=== PATIENT | female | born 1975 | race Caucasian/White ===

== ENCOUNTER 2017-06-13 11:06 | Emergency (ER) | payer BC ==
[2017-06-13] MEDS ORDERED: NS 0.9% 1000 ML* 1,000 ML IV ONE (11:23)
[2017-06-13 11:48] LABS: Hematocrit 37 % (35-47); Hemoglobin 12.2 g/dl (12.0-16.0); Mean Corpuscular HGB Conc 33 g/dl (31-36); Mean Corpuscular Hemoglobin 31 pg (27-31); Mean Corpuscular Volume 93 fL (80-97); Mean Platelet Volume 8 um3 (7.4-10.4); Red Blood Count 3.98 10^6/ul (4.0-5.4); Red Cell Distribution Width 14 % (10.5-15); White Blood Count 8.1 10^3/ul (3.5-10.8)
--- NOTE | 2017-06-13 11:52 | RAD ---
Indication: Palpitations, syncope. CT of the brain was performed without IV contrast. Ventricular structures are midline. No midline shift is noted. The extra-axial spaces are unremarkable. There is no evidence of intracranial mass or hemorrhage. No other high or low density lesions are identified. Mastoid air cells and paranasal sinuses are otherwise unremarkable. IMPRESSION: No intracranial mass or hemorrhage is noted.
[2017-06-13 12:08] LABS: ALT 17 U/L (7-52); AST 21 U/L (13-39); Albumin 4.1 g/dL (3.2-5.2); Alkaline Phosphatase 58 U/L (34-104); Anion Gap 9 mmol/L (2-11); BUN/Creatinine Ratio 18.2 (8-20); Blood Urea Nitrogen 14 mg/dL (6-24); CO2 Carbon Dioxide 22 mmol/L (22-32); Calcium 9.3 mg/dL (8.6-10.3); Chloride 101 mmol/L (101-111); EGFR African American 106.8 (>60); Globulin 3.5 g/dL (2-4); Glucose 86 mg/dL (70-100); Potassium 3.9 mmol/L (3.5-5.0); Sodium 132 mmol/L (133-145); Total Protein 7.6 g/dL (6.4-8.9)
--- NOTE | 2017-06-13 12:15 | RAD ---
Indication: Palpitations. 2 views of the chest including dual energy PA views are reviewed. Comparison is made with previous exam dated November 12, 2010. No pleural fluid is identified. Lung ding appear clear. IMPRESSION: No active cardiopulmonary disease is noted.
[2017-06-13 12:19] LABS: Urine Bilirubin Negative (Negative); Urine Glucose Negative (Negative); Urine Nitrite Negative (Negative)
--- NOTE | 2017-06-13 13:31 | ED ---
Ramiro Martinez Auryana, scribed for Niles Stewart MD on 06/13/17 at 1125 . HPI Cardiac - HPI Summary HPI Summary: 41 year old female presents with diaphoresis, palpitations, and SOB starting last night. Patient reports that her symptoms woke her from sleep and then reports LOC. This morning, patient reported feeling "whoozy" with nausea and chills with intermittent diaphoresis. She denies any CP. She denies any oral control pills - LMP June 05 - the reports normal. Patient reports that she has been fatigued with SOB over the last few months. She also reports recent ABX use (Augmentin) for sinus infection. PMHx is significant for RA- recently ceased taking Xeljanz, and ulcerative colitis. he denies any thyroid problems and reports no previous surgeries. FHx is significant for cancer and CAD. SHx is significant for occasional alcohol but denies any tobacco use. - History of Current Complaint Chief Complaint: EDShortnessOfBreath Stated Complaint: SYNCOPE, SHORT OF BREATH , Time Seen by Provider: 06/13/17 11:18 Hx Obtained From: Patient Onset/Duration: Started Hours Ago - lastnight, Still Present Timing: Constant Initial Severity: Mild Current Severity: Mild Pain Intensity: 0 Pain Scale Used: 0-10 Numeric Associated Signs and Symptoms: Positive: Shortness of Breath, Chills, Diaphoresis, Nausea, Palpitations. Negative: Chest Pain Related History: Similar Episode/Dx as: - see HPI - Allergy/Home Medications Allergies/Adverse Reactions: Allergies Allergy/AdvReac Type Severity Reaction Status Date / Time Sulfa Antibiotics Allergy Intermediate mouth sores Verified 06/13/17 12:24 Adalimumab [From Humira] Allergy FEVER, RASH Verified 06/13/17 12:24 PMH/Surg Hx/FS Hx/Imm Hx GI History: Reports: Other GI Disorders - ULCERATIVE COLITIS Musculoskeletal History: Reports: Hx Rheumatoid Arthritis - Surgical History Surgery Procedure, Year, and Place: NONE - Immunization History Date of Influenza Vaccine: 2015 Infectious Disease History: Denies: Hx Clostridium Difficile, Hx Hepatitis, Hx Human Immunodeficiency Virus (HIV), Hx of Known/Suspected MRSA, Hx Shingles, Hx Tuberculosis, Traveled Outside the [place] in Last 30 Days - Family History Known Family History: Positive: Cardiac Disease, Diabetes, Other - cancer - Social History Alcohol Use: Occasionally Hx Substance Use: No Substance Use Type: Reports: None Hx Tobacco Use: No Smoking Status (MU): Never Smoked Tobacco Review of Systems Positive: Chills, Fatigue - over the last few months , Skin Diaphoresis, Other - reports feeling "whoozy". Negative: Fever Eyes: Negative ENT: Negative Positive: Palpitations. Negative: Chest Pain Positive: Shortness Of Breath - also over the last few months Positive: Nausea Genitourinary: Negative Positive: no symptoms reported Musculoskeletal: Negative Skin: Negative Neurological: Negative Psychological: Normal All Other Systems Reviewed And Are Negative: Yes Physical Exam - Summary Physical Exam Summary: VITAL SIGNS: Reviewed. GENERAL: Patient is a well-developed and nourished female who is lying comfortable in the stretcher. Patient is not in any acute respiratory distress. HEAD AND FACE: No signs of trauma. No ecchymosis, hematomas or skull depressions. No sinus tenderness. EYES: PERRLA, EOMI x 2, No injected conjunctiva, no nystagmus. EARS: Hearing grossly intact. Ear canals and tympanic membranes are within normal limits. MOUTH: Oropharynx within normal limits. NECK: Supple, trachea is midline, no adenopathy, no JVD, no carotid bruit, no c- spine tenderness, neck with full ROM. CHEST: Symmetric, no tenderness at palpation LUNGS: Clear to auscultation bilaterally. No wheezing or crackles. CVS: Regular rate and rhythm, S1 and S2 present, no murmurs or gallops appreciated. ABDOMEN: Soft, non-tender. No signs of distention. No rebound no guarding, and no masses palpated. Bowel sounds are normal. EXTREMITIES: FROM in all major joints, no edema, no cyanosis or clubbing. NEURO: Alert and oriented x 3. No acute neurological deficits. Speech is normal and follows commands. SKIN: Dry and warm. Triage Information Reviewed: Yes Vital Signs On Initial Exam: Initial Vitals Temp Pulse Resp BP Pulse Ox 98.0 F 64 20 141/95 100 06/13/17 11:08 06/13/17 11:08 06/13/17 11:08 06/13/17 11:08 06/13/17 11:08 Vital Signs Reviewed: Yes Diagnostics - Vital Signs Vital Signs Temp Pulse Resp BP Pulse Ox 06/13/17 11:08 98.0 F 64 20 141/95 100 - Laboratory Lab Results: Lab Results 06/13/17 06/13/17 06/13/17 Range/Units 11:32 11:32 11:32 WBC 8.1 (3.5-10.8) 10^3/ul RBC 3.98 L (4.0-5.4) 10^6/ul Hgb 12.2 (12.0-16.0) g/dl Hct 37 (35-47) % MCV 93 (80-97) fL MCH 31 (27-31) pg MCHC 33 (31-36) g/dl RDW 14 (10.5-15) % Plt Count 342 (150-450) 10^3/ul MPV 8 (7.4-10.4) um3 Neut % (Auto) 60.6 (38-83) % Lymph % (Auto) 21.7 L (25-47) % [place] % (Auto) 14.9 H (1-9) % Eos % (Auto) 1.9 (0-6) % Baso % (Auto) 0.9 (0-2) % Absolute Neuts (auto) 4.9 (1.5-7.7) 10^3/ul Absolute Lymphs (auto) 1.7 (1.0-4.8) 10^3/ul Absolute Monos (auto) 1.2 H (0-0.8) 10^3/ul Absolute Eos (auto) 0.2 (0-0.6) 10^3/ul Absolute Basos (auto) 0.1 (0-0.2) 10^3/ul Absolute Nucleated RBC 0.01 10^3/ul Nucleated RBC % 0.1 Sodium 132 L (133-145) mmol/L Potassium 3.9 (3.5-5.0) mmol/L Chloride 101 (101-111) mmol/L Carbon Dioxide 22 (22-32) mmol/L Anion Gap 9 (2-11) mmol/L BUN 14 (6-24) mg/dL Creatinine 0.77 (0.51-0.95) mg/dL Est GFR ( Amer) 106.8 (>60) Est GFR (Non-Af Amer) 83.0 (>60) BUN/Creatinine Ratio 18.2 (8-20) Glucose 86 (70-100) mg/dL Lactic Acid 0.6 (0.5-2.0) mmol/L Calcium 9.3 (8.6-10.3) mg/dL Magnesium 2.0 (1.9-2.7) mg/dL Total Bilirubin 0.30 (0.2-1.0) mg/dL AST 21 (13-39) U/L ALT 17 (7-52) U/L Alkaline Phosphatase 58 (34-104) U/L Troponin I 0.00 (<0.04) ng/mL B-Natriuretic Peptide ( - 100) pg/mL Total Protein 7.6 (6.4-8.9) g/dL Albumin 4.1 (3.2-5.2) g/dL Globulin 3.5 (2-4) g/dL Albumin/Globulin Ratio 1.2 (1-3) TSH 1.50 (0.34-5.60) mcIU/mL Beta HCG, Quant < 0.60 mIU/mL Urine Color Urine Appearance Urine pH (5-9) Ur Specific [place] (1.010-1.030) Urine Protein (Negative) Urine Ketones (Negative) Urine Blood (Negative) Urine Nitrate (Negative) Urine Bilirubin (Negative) Urine Urobilinogen (Negative) Ur Leukocyte Esterase (Negative) Urine Glucose (Negative) 06/13/17 06/13/17 Range/Units 11:32 12:00 WBC (3.5-10.8) 10^3/ul RBC (4.0-5.4) 10^6/ul Hgb (12.0-16.0) g/dl Hct (35-47) % MCV (80-97) fL MCH (27-31) pg MCHC (31-36) g/dl RDW (10.5-15) % Plt Count (150-450) 10^3/ul MPV (7.4-10.4) um3 Neut % (Auto) (38-83) % Lymph % (Auto) (25-47) % [place] % (Auto) (1-9) % Eos % (Auto) (0-6) % Baso % (Auto) (0-2) % Absolute Neuts (auto) (1.5-7.7) 10^3/ul Absolute Lymphs (auto) (1.0-4.8) 10^3/ul Absolute Monos (auto) (0-0.8) 10^3/ul Absolute Eos (auto) (0-0.6) 10^3/ul Absolute Basos (auto) (0-0.2) 10^3/ul Absolute Nucleated RBC 10^3/ul Nucleated RBC % Sodium (133-145) mmol/L Potassium (3.5-5.0) mmol/L Chloride (101-111) mmol/L Carbon Dioxide (22-32) mmol/L Anion Gap (2-11) mmol/L BUN (6-24) mg/dL Creatinine (0.51-0.95) mg/dL Est GFR ( Amer) (>60) Est GFR (Non-Af Amer) (>60) BUN/Creatinine Ratio (8-20) Glucose (70-100) mg/dL Lactic Acid (0.5-2.0) mmol/L Calcium (8.6-10.3) mg/dL Magnesium (1.9-2.7) mg/dL Total Bilirubin (0.2-1.0) mg/dL AST (13-39) U/L ALT (7-52) U/L Alkaline Phosphatase (34-104) U/L Troponin I (<0.04) ng/mL B-Natriuretic Peptide 37 ( - 100) pg/mL Total Protein (6.4-8.9) g/dL Albumin (3.2-5.2) g/dL Globulin (2-4) g/dL Albumin/Globulin Ratio (1-3) TSH (0.34-5.60) mcIU/mL Beta HCG, Quant mIU/mL Urine Color Straw Urine Appearance Clear Urine pH 7.0 (5-9) Ur Specific [place] 1.006 L (1.010-1.030) Urine Protein Negative (Negative) Urine Ketones Negative (Negative) Urine Blood Negative (Negative) Urine Nitrate Negative (Negative) Urine Bilirubin Negative (Negative) Urine Urobilinogen Negative (Negative) Ur Leukocyte Esterase Negative (Negative) Urine Glucose Negative (Negative) Result Diagrams: 06/13/17 11:32 06/13/17 11:32 Lab Statement: Any lab studies that have been ordered have been reviewed, and results considered in the medical decision making process. - Radiology CXR Xray Interpretation: No Acute Changes Radiology Interpretation Completed By: Radiologist - CT BRAIN CT Interpretation: No Acute Changes CT Interpretation Completed By: Radiologist - EKG 11:22 EKG Interpretation: sinus rhythm at 60 BPM, no ST elevation Disposition - Course Assessment/Plan: 41 year old female presents with diaphoresis, palpitations, and SOB starting last night. Patient reports that her symptoms woke her from sleep and then reports LOC. This morning, patient reported feeling "woozy" with nausea and chills with intermittent diaphoresis. She denies any CP. She denies any oral control pills - LMP June 05 - the reports normal. Patient reports that she has been fatigued with SOB over the last few months. She also reports recent ABX use (Augmentin) for sinus infection. PMHx is significant for RA- recently ceased taking Xeljanz, and ulcerative colitis. he denies any thyroid problems and reports no previous surgeries. FHx is significant for cancer and CAD. SHx is significant for occasional alcohol but denies any tobacco use. In the ED course an IV access was obtained. Patient was placed in a cardiac specialist. Patient was started with IV fluids. Labs within normal limits except for Na of 132. Troponin #1: 0.00. EKG shows a NSR w/o ST elevations. She was kept in the monitor and has no abnormal rhythms to explain the palpitations. CXR impression: No acute pathology. Head CT impression: No intracranial mass or hemorrhage. She has remained stable in the ED. SHe has no complaints. There is a question of syncope while she was sleeping but not confirmed. Since all test are normal, the patient is asymptomatic I will discharge the patient home with f/u of PMD/. I discussed all the findings and test results with the patient. Patient was instructed to return to the emergency room immediately if any of the symptoms return or worsens. Plan of care was discussed with the patient and understands and agrees. All questions were answered at patient satisfaction. There were no further complaints or concerns. Lung exam before discharge: CTA B/L. Good air exchange. No wheezing or crackles heard. CVS: S1 and S2 present. No murmurs appreciated. Patient is alert and oriented x 3. Patient is hemodynamically stable. Patient will be discharged home with follow up PCP in the next 2-3 days - Differential Dx - Cardiopulmonary Differential Diagnoses - Cardiopulmonary: Atrial Fibrillation, Atrial Flutter - Syncope, CVA, TIA - Diagnoses Provider Diagnoses: Palpitations, Questionable syncope episode Discharge - Discharge Plan Condition: Stable Disposition: HOME Patient Education Materials: Palpitations (ED) Referrals: Eliceo Lin MD [Primary Care Provider] - 2 Days The documentation as recorded by the Ramiro ye Auryana accurately reflects the service I personally performed and the decisions made by Terry fritz Walter, MD.
[2017-06-13 13:36] VITALS: BP 123/63
== END 2017-06-13 13:36 | disposition home or self-care (01) ==
LOC: ED 11:06
DX: R00.2 Palpitations (principal); R06.02 Shortness of breath; R11.0 Nausea
CPT/HCPCS: 36415; 70450; 71020; 80053; 81003; 83605; 83735; 83880; 84443; 84484; 84702; 85025; 93005; 99282

== ENCOUNTER 2017-12-25 16:03 | Emergency (ER) | payer SELFPAY ==
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
[2017-12-25 19:07] VITALS: BP 139/88
== END 2017-12-25 19:56 | disposition home or self-care (01) ==
LOC: ED 16:03
DX: S30.1XXA Contusion of abdominal wall, initial encounter (principal); M06.9 Rheumatoid arthritis, unspecified; K51.90 Ulcerative colitis, unspecified, without complications; V89.2XXA Person injured in unspecified motor-vehicle accident, traffic, initial encounter; Y92.9 Unspecified place or not applicable
CPT/HCPCS: 74176; 99282

== ENCOUNTER 2019-07-02 16:24 | Emergency (ER) | payer BC ==
[2019-07-02 16:47] VITALS: BP 142/96
--- NOTE | 2019-07-02 17:52 | UC ---
General HPI - HPI Summary HPI Summary: 44 yo WF h/o neuro-cardiogenic syncope dx's years ago p/w feelings of having "low HR", thinks it is in the 50's, denies CP but has SOB and feels weak. Has had cardiac w/u with tilt table test baout 8 yrs ago and another cardiologyvisit 2 yrs ago without concrete etiological explanation of her syncopal episodes. States she has had syncope in the past at home without any known precipitators but none of her cardiologists or her PCP has given clear answers as to why she is having these episodes and has heard of [id number] reasons that it may be "stress related" and to "take in more salt". Does not recall her last blood test by PCP - History of Current Complaint Chief Complaint: UCGeneralIllness Stated Complaint: LOW HEART RATE Time Seen by Provider: 07/02/19 16:48 Hx Obtained From: Patient Hx Last Menstrual Period: 06/21/2019 Onset/Duration: Gradual Onset Onset Severity: Moderate Current Severity: Moderate Pain Intensity: 5 - Allergy/Home Medications Allergies/Adverse Reactions: Allergies Allergy/AdvReac Type Severity Reaction Status Date / Time MS Sulfa Antibiotics Allergy Intermediate mouth sores Verified 06/13/17 12:24 [Sulfa Antibiotics] adalimumab Allergy Fever Verified 07/02/19 16:28 MS Adalimumab [From Humira] Allergy FEVER, RASH Verified 06/13/17 12:24 Sulfa (Sulfonamide Allergy See Comment Verified 07/02/19 16:28 Antibiotics) Home Medications: Home Medications Levonorgestrel (Iud) [Mirena IUD] 20 mcg IU DAILY 07/02/19 [History Confirmed ] PMH/Surg Hx/FS Hx/Imm Hx Previously Healthy: No Other Endocrine History: RA - Surgical History Surgical History: None Surgery Procedure, Year, and Place: NONE - Family History Known Family History: Positive: Cardiac Disease, Diabetes, Other - cancer - Social History Alcohol Use: Weekly Substance Use Type: None Smoking Status (MU): Never Smoked Tobacco Review of Systems All Other Systems Reviewed And Are Negative: Yes Constitutional: Positive: Negative Skin: Positive: Negative Eyes: Positive: Negative ENT: Positive: Negative Respiratory: Positive: Shortness Of Breath Cardiovascular: Negative: Chest Pain Gastrointestinal: Positive: Negative Genitourinary: Positive: Negative Motor: Positive: Negative Musculoskeletal: Positive: Negative Neurological: Positive: Negative Psychological: Positive: Negative Is Patient Immunocompromised?: No Physical Exam Triage Information Reviewed: Yes Appearance: No Pain Distress Vital Signs: Initial Vital Signs Temp 37.4 C 07/02/19 16:29 Pulse 75 07/02/19 16:29 Resp 18 07/02/19 16:29 BP 148/102 07/02/19 16:29 Pulse Ox 99 07/02/19 16:29 Vital Signs Reviewed: Yes Eye Exam: Normal Eyes: Positive: Conjunctiva Clear ENT: Positive: Normal ENT inspection Neck: Positive: Supple Respiratory Exam: Normal Respiratory: Positive: Lungs clear, Normal breath sounds. Negative: Crackles, Rhonchi, Stridor, Wheezing Cardiovascular Exam: Normal Cardiovascular: Positive: RRR - S1S2, no murmurs, No Murmur, Pulses Normal. Negative: Tachycardia, Bradycardia Abdomen Description: Positive: Nontender Musculoskeletal Exam: Normal Neurological Exam: Normal Psychological Exam: Normal Skin Exam: Normal Course/Dx - Course Course Of Treatment: No evidence of bradycardia on exam, no arrythmias or STT changes on EKG, there is mild LVH hypertrophy, SBPelevated in 140's advised pt, she needs more scrutiny in picking her cardiologists and needs closer monitoring and workup to r/o any cardiac condition, dysrhythmias with a holter, ECHO and stress test - Diagnoses Provider Diagnosis: Fatigue, H/O syncope Discharge - Sign-Out/Discharge Documenting (check all that apply): Patient Departure All imaging exams completed and their final reports reviewed: No Studies - Discharge Plan Condition: Stable Disposition: HOME Patient Education Materials: Bradycardia (ED) Referrals: Eliceo Lin MD [Primary Care Provider] - Renuka Jacob MD [Medical Doctor] - Additional Instructions: Please follow up with cardiology on Friday if possible and your PCP for complete workup for cause of your neuro-cardiogenic syncope. - Billing Disposition and Condition Condition: STABLE Disposition: Home
== END 2019-07-02 17:55 | disposition home or self-care (01) ==
LOC: UCEAST 16:24
DX: R55 Syncope and collapse (principal); R53.83 Other fatigue; M06.9 Rheumatoid arthritis, unspecified; Z88.2 Allergy status to sulfonamides
CPT/HCPCS: 99211; G0463

== ENCOUNTER 2019-12-16 19:30 | Emergency (ER) | payer SELFPAY ==
[2019-12-16] MEDS ORDERED: Ibuprofen TAB* 600 MG PO ONE (20:33)
[2019-12-16] MEDS ORDERED: Cyclobenzaprine TAB* 10 MG PO ONE (20:34)
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
[2019-12-16 20:55] VITALS: BP 149/82
== END 2019-12-16 20:54 | disposition home or self-care (01) ==
LOC: ED 19:30
DX: M62.830 Muscle spasm of back (principal); M54.2 Cervicalgia; M54.6 Pain in thoracic spine; V44.5XXA Car driver injured in collision with heavy transport vehicle or bus in traffic accident, initial encounter; Y92.410 Unspecified street and highway as the place of occurrence of the external cause; M06.9 Rheumatoid arthritis, unspecified; Z88.2 Allergy status to sulfonamides; Z88.8 Allergy status to other drugs, medicaments and biological substances
CPT/HCPCS: 99282; A9270-GY